=== PATIENT | female | born 2000 | race Two or more races ===

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

== ENCOUNTER 2019-02-20 00:18 | Emergency (ER) | payer MEDICAID, OTHER ==
[~2019-02-20] VITALS: Ht 162.6 cm; Wt 77.1 kg
[2019-02-20] MEDS ORDERED: BACLOFEN 10 MG TAB PO ONE (04:00)
[2019-02-20] MEDS ORDERED: ACETAMINOPHEN/CODEINE#3 (300/30mg) TAB PO ONE (04:00)
[2019-02-20 04:06] VITALS: BP 127/70
== END 2019-02-20 04:46 | disposition home or self-care (01) ==
LOC: ER 00:18
DX: M62.838 Other muscle spasm (principal); F17.210 Nicotine dependence, cigarettes, uncomplicated; F12.10 Cannabis abuse, uncomplicated
CPT/HCPCS: 70450; 81025